=== PATIENT | female | born 1995 | race Caucasian/White ===

== ENCOUNTER 2020-01-07 12:49 | Outpatient (CLI) | payer MEDICAID, SELFPAY ==
[2020-01-07 14:14] LABS: Iron 115 ug/dL (37-170)
[2020-01-07 14:25] LABS: Percent Iron Saturation 28 % (20-50)
== END 2020-01-07 12:50 | disposition home or self-care (01) ==
LOC: ANHWCLAB 12:51
PROVIDERS: PCP Internal Medicine; Visit Provider Internal Medicine
DX: G25.81 Restless legs syndrome (principal)
CPT/HCPCS: 36415; 82728; 83540; 83550

== ENCOUNTER 2020-02-22 09:13 | Outpatient (CLI) | payer MEDICAID, SELFPAY ==
[2020-02-22 09:53] LABS: Basophils Percent Auto 0.4 % (0.2-1.2); Eosinophils Absolute Auto 0.1 K/mm3 (0-0.3); Eosinophils Percent Auto 1.4 % (0-4.4); Hematocrit 41.7 % (37.0-47.0); Hemoglobin 13.5 g/dL (12.0-15.0); Immature Granulocyte Absolute 0.02 K/mm3 (0.00-0.031); Immature Granulocyte Percent A 0.3 % (0-0.5); Lymphocytes Absolute Auto 1.86 K/mm3 (0.9-3.2); Lymphocytes Percent Auto 26.5 % (18.3-44.2); Mean Corpuscular HGB Conc 32.4 g/dl (32-36); Mean Corpuscular Hemoglobin 29.9 pg (26-34); Mean Corpuscular Volume 92.5 fl (80-100); Mean Platelet Volume 9.7 fl (7.4-10.4); Monocytes Absolute Auto 0.5 K/mm3 (0.1-0.6); Monocytes Percent Auto 6.4 % (2.6-8.5); Neutrophils Absolute Auto 4.6 K/mm3 (1.3-6.7); Platelet Count Result 302 k/mm3 (150-375); Red Blood Count 4.51 M/mm3 (4.2-5.4); Red Cell Distribution Width 12.2 % (11.5-14.5)
[2020-02-22 10:22] LABS: Alanine Aminotransferase 24 U/L (4-35); Albumin Level 4.6 g/dL (3.5-5.1); Alkaline Phosphatase 73 U/L (38-126); Aspartate Amino Transferase 24 U/L (14-36); Bilirubin,Total 0.4 mg/dL (0.2-1.3); Blood Urea Nitrogen 9 mg/dL (7-17); Calcium 9.3 mg/dL (8.4-10.2); Carbon Dioxide 26 mmol/L (22-30); Chloride 106 mmol/L (98-107); Estimated Glomerular Filt Rate > 60; Glucose 95 mg/dL (65-105); Potassium 4.3 mmol/L (3.4-5.0); Sodium 139 mmol/L (137-145)
[2020-02-22 11:36] LABS: Iron 69 ug/dL (37-170); Percent Iron Saturation 16 % (20-50)
== END 2020-02-22 09:14 | disposition home or self-care (01) ==
LOC: ANHLAB 09:15
PROVIDERS: PCP Internal Medicine; Visit Provider Internal Medicine
DX: E61.1 Iron deficiency (principal); G43.709 Chronic migraine without aura, not intractable, without status migrainosus; Z79.899 Other long term (current) drug therapy
CPT/HCPCS: 36415; 80053; 82306; 82728; 83540; 83550; 84443; 85025

== ENCOUNTER 2020-04-11 12:53 | Outpatient (CLI) | payer OTHER, SELFPAY ==
--- NOTE | 2020-04-17 13:32 | WPDPFTINT ---
PFT Interpretation PFT Interpretation: This Spirometry met all criteria for ATS standards and reproducibility FEV/FVC post bronchodilator 80% FEV1 was 113% of predicted FVC 108% of predicted Flow volume loops were normal Impression: This was a normal Spirometry. Clinical correlation is advised.
== END 2020-04-11 12:54 | disposition home or self-care (01) ==
PROVIDERS: PCP Internal Medicine; Visit Provider Internal Medicine
DX: R06.02 Shortness of breath (principal)
CPT/HCPCS: 94375

== ENCOUNTER 2020-05-27 07:41 | Emergency (ER) | payer OTHER, SELFPAY ==
--- NOTE | ~2020-05-27 | CT_ITS ---
EXAMINATION: CT brain wo con DATE: 05/27/2020 08:21 INDICATION: Headache. TECHNIQUE: Computed tomography (CT) of the head was performed without intravenous contrast. The mA wa s adjusted according to patient size. Iterative reconstruction technique was employed. The dose-lengt h product was 605.33 mGy-cm. COMPARISON: None FINDINGS: There is no intracranial hemorrhage, acute infarction, or abnormal intracranial mass lesion . The ventricles are normal in size. The orbits are normal. There is mucosal thickening in the parana janae sinuses. There is thickening and sclerosis of the robles of right maxillary sinus, consistent with chronic sinusitis. There are changes of left mastoidectomy. IMPRESSION: 1. Normal brain. 2. Chronic sinusitis. Reviewed, dictated and finalized at location A.
--- NOTE | 2020-05-27 07:44 | ED.GENADULT ---
HPI - General Adult General Chief complaint: Headache Stated complaint: Head Pain Time Seen by Provider: 05/27/20 07:44 Source: patient Mode of arrival: ambulatory Limitations: no limitations History of Present Illness HPI narrative: Patient is a 24-year-old female who presents for evaluation of headache pain. Patient reports a sharp, stabbing headache that is located over the right side of her head, associated with a pressure behind her right eye. No eye tearing, or vision changes. No eye redness. Patient with a history of migraine headaches, but states this is much different than typical migraines. Headache awakened her from sleep this morning. She denies neck pain, dizziness, nausea or vomiting. No aura like sensation with this, although she states with her typical migraines she does experience that. Pain is been ongoing over the past 3 days. Patient has tried her [id number] medications and prescribed Topamax without much improvement in her symptoms. No fever, chills or neck pain. No numbness or difficulty with walking. Related Data Home Medications Medication Instructions Recorded Confirmed etonogestrel 68 mg subdermal 1 implant SUBDERMAL ONCE 11/23/19 02/25/20 implant Allergies Allergy/AdvReac Type Severity Reaction Status Date / Time No Known Allergies Allergy Verified 05/27/20 07:53 Review of Systems Review of Systems: Narrative: CONSTITUTIONAL: Denies fever, chills, or sweats. EYES: Denies visual changes, redness, or discharge. ENT: Denies rhinorrhea, congestion, sore throat, or otalgia. CARDIOVASCULAR: Denies chest pain RESPIRATORY: Denies cough or dyspnea. GASTROINTESTINAL: Denies abdominal pain, nausea, vomiting, or diarrhea. SKIN: Denies rash or itching. MUSCULOSKELETAL: Denies back pain, joint pain, or myalgia. NEUROLOGIC:Reports headache, denies numbness or weakness PMFSH Past Medical History Medical History BMI 32.0-32.9,adult Cervical radiculopathy Chronic migraine Generalized anxiety disorder Hypovitaminosis D Post-nasal drip Shortness of breath Family History Family History Father Diabetes mellitus Patient's father is in good health Mother Patient's mother is in good health Family history of malignant melanoma Social History Social History Smoking status: Never smoker Alcohol intake: current Gender identity (if verbalized by the patient): Female Exam Narrative: Exam Narrative: GENERAL: Awake, alert, conversant HEAD: Normocephalic, atraumatic. EYES: 2+ PERRLA and EOMI. ENT: Nares clear, no rhinorrhea or epistaxis. Mucous membranes moist. NECK: Supple. CHEST: No respiratory distress, breathing even and non labored HEART: Regular rate, sinus rhythm ABDOMEN:Non distended, non tender EXTREMITIES: Normal range of motion. No edema. SKIN: Warm, dry, no rash. NEURO:No focal deficits. Alert and oriented x3. EOMs intact without nystagmus. No facial droop/asymmetry noted bilaterally. Grimace intact. Intact sensation in face. Hearing intact bilaterally. Shoulder shrug intact. Strength 5/5 bilateral upper extremities. Strength 5/5 bilateral lower extremities. Ambulatory with a narrow base, steady gait. Course Vital Signs Vital signs: Vital Signs Temperature 37.1 C 05/27/20 07:48 Pulse Rate 82 05/27/20 07:48 Respiratory Rate 18 05/27/20 07:48 Blood Pressure 155/69 H 05/27/20 07:48 Pulse Oximetry 100 05/27/20 07:48 Temperature 37.1 C 05/27/20 07:48 Pulse Rate 81 05/27/20 08:02 Respiratory Rate 16 05/27/20 08:02 Blood Pressure 130/76 05/27/20 08:02 Pulse Oximetry 100 05/27/20 08:02 Medical Decision Making MDM Narrative Medical decision making narrative: The patient was evaluated in the emergency department for headache. Patient's headache pain was not sudden or maxim
[2020-05-27 07:48] VITALS: BP 155/69; PULSE 82; RESP 18; TEMP 37.1; O2SAT 100
[2020-05-27 08:02] VITALS: BP 130/76; PULSE 81; RESP 16; O2SAT 100
[2020-05-27] MEDS: diphenhydrAMINE HCl INJ 50 MG/ML VIAL 25 MG IV PUSH (08:10)
[2020-05-27] MEDS: SODIUM CHLORIDE 0.9% IV 1,000 ML 999 ML IV CONT (08:11)
[2020-05-27] MEDS: MAGNESIUM SULF 2 GM/WATER 50ML 2 GM/50 ML BAG IVPB (08:16)
[2020-05-27 08:26] LABS: Basophils Percent Auto 0.7 % (0.2-1.2); Eosinophils Absolute Auto 0.1 K/mm3 (0-0.3); Eosinophils Percent Auto 1.8 % (0-4.4); Hematocrit 42.6 % (37.0-47.0); Hemoglobin 14.3 g/dL (12.0-15.0); Immature Granulocyte Absolute 0.03 K/mm3 (0.00-0.031); Immature Granulocyte Percent A 0.5 % (0-0.5); Lymphocytes Absolute Auto 1.93 K/mm3 (0.9-3.2); Lymphocytes Percent Auto 32.3 % (18.3-44.2); Mean Corpuscular HGB Conc 33.6 g/dl (32-36); Mean Corpuscular Hemoglobin 30.1 pg (26-34); Mean Corpuscular Volume 89.7 fl (80-100); Mean Platelet Volume 10.2 fl (7.4-10.4); Monocytes Absolute Auto 0.4 K/mm3 (0.1-0.6); Monocytes Percent Auto 6.5 % (2.6-8.5); Neutrophils Absolute Auto 3.5 K/mm3 (1.3-6.7); Neutrophils Percent Auto 58.2 % (45.5-73.1); Platelet Count Result 260 k/mm3 (150-375); Red Blood Count 4.75 M/mm3 (4.2-5.4); Red Cell Distribution Width 12.9 % (11.5-14.5)
[2020-05-27 08:43] LABS: Blood Urea Nitrogen 9 mg/dL (7-17); Calcium 9.2 mg/dL (8.4-10.2); Carbon Dioxide 21 mmol/L (22-30); Chloride 107 mmol/L (98-107); Estimated CRCL calculation 130 ml/min; Estimated Glomerular Filt Rate > 60; Glucose 115 mg/dL (65-105); Sodium 138 mmol/L (137-145)
[2020-05-27 09:14] VITALS: BP 113/70; PULSE 70; RESP 10; O2SAT 98
== END 2020-05-27 09:20 | disposition home or self-care (01) ==
PROVIDERS: Emergency Provider Emergency Medicine; PCP Internal Medicine
DX: G44.009 Cluster headache syndrome, unspecified, not intractable (principal); F41.9 Anxiety disorder, unspecified
CPT/HCPCS: 36415; 70450; 80048; 81025; 85025; 96365; 96368; 96375; 99284; J0131; J1100; J1200; J3475; J7030

== ENCOUNTER 2020-07-04 09:23 | Outpatient (CLI) | payer OTHER, SELFPAY ==
--- NOTE | ~2020-07-04 | XR_ITS ---
EXAMINATION: XR abdomen/kub 1V EXAM DATE: 07/04/2020 09:40 INDICATION: Right flank pain. History kidney stones. TECHNIQUE: Frontal projection(s) of the abdomen for interpretation. There is no prior study for sole schaefer. FINDINGS: There is expected amount of colonic stool and gas. No small bowel dilation, nonobstructiv e bowel gas pattern. There are no suspicious calcifications identified. There is no organomegaly suspected. The bones are unremarkable. There are cholecystectomy clips. IMPRESSION: Unremarkable abdomen x-ray exam. Reviewed, dictated and finalized at location A.
[2020-07-04 10:09] LABS: Add Urine Microscopic? YES; Appearance Urine Cloudy (Clear); Bacteria Urine Trace /hpf; Bilirubin Urine Negative (Negative); Blood Urine 1+ (Negative); Color Urine Yellow (Yellow); Glucose Urine UA Negative (Negative); Ketones Urine Negative (Negative); Leukocyte Esterase Ur Trace LEU/UL (Negative); Mucus Urine Moderate /lpf; Nitrate Urine Negative (Negative); Protein Urine Negative (Negative); RBC Urine 0-2 /hpf (0-2); Specific Grav Ur 1.024 (1.001-1.035); Squamous Epithelial Cell Urine Many /hpf (Few); Urobilinogen Urine Negative mg/dL (<2.0)
== END 2020-07-04 09:24 | disposition home or self-care (01) ==
LOC: ANHIMG 09:24
PROVIDERS: PCP Internal Medicine; Visit Provider Internal Medicine
DX: R10.9 Unspecified abdominal pain (principal); N20.0 Calculus of kidney
CPT/HCPCS: 74018; 81001

== ENCOUNTER 2020-07-07 08:05 | Outpatient (CLI) | payer OTHER, SELFPAY | END 2020-07-07 08:06 | disposition home or self-care (01) | LOC: ANHLAB 08:07 | PROVIDERS: Visit Provider Internal Medicine | DX: R82.90 Unspecified abnormal findings in urine (principal) | CPT/HCPCS: 87086 ==

== ENCOUNTER 2020-07-11 10:34 | Outpatient (CLI) | payer OTHER, SELFPAY ==
[2020-07-11 11:19] LABS: Add Urine Microscopic? NO; Appearance Urine Clear (Clear); Bilirubin Urine Negative (Negative); Blood Urine Negative (Negative); Color Urine Yellow (Yellow); Glucose Urine UA Negative (Negative); Ketones Urine Negative (Negative); Leukocyte Esterase Ur Negative LEU/UL (NEGATIVE); Nitrate Urine Negative (Negative); Protein Urine Negative (Negative); Specific Grav Ur 1.023 (1.001-1.035); Urobilinogen Urine Negative mg/dL (<2.0)
== END 2020-07-11 10:35 | disposition home or self-care (01) ==
PROVIDERS: PCP Internal Medicine; Visit Provider Internal Medicine
DX: R31.9 Hematuria, unspecified (principal)
CPT/HCPCS: 81003

== ENCOUNTER 2020-10-01 13:15 | Emergency (ER) | payer OTHER, SELFPAY ==
--- NOTE | ~2020-10-01 | CT_ITS ---
EXAMINATION: CT brain wo con DATE: 10/01/2020 14:00 INDICATION: Peripheral vision change. Hand numbness. TECHNIQUE: Computed tomography (CT) of the head was performed without intravenous contrast. The mA wa s adjusted according to patient size. Iterative reconstruction technique was employed. The dose-lengt h product was 983.67 mGy-cm. COMPARISON: Head CT 05/27/2020 FINDINGS: There is no intracranial hemorrhage, acute infarction, or abnormal intracranial mass lesion . The ventricles are normal in size. There are changes of left-sided mastoidectomy. There is mild muc osal thickening in the ethmoid sinuses. The orbits are normal. IMPRESSION: 1. Normal brain. Reviewed, dictated and finalized at location A. [place] IMPRESSION: 1. Normal brain.
[2020-10-01 13:40] VITALS: BP 134/81; PULSE 80; RESP 18; TEMP 36.9; O2SAT 100
[2020-10-01] MEDS: KETOROLAC 30 MG/ML VIAL (*BKC) IV PUSH (13:45)
[2020-10-01] MEDS: METOCLOPRAMIDE HCL INJ 10 MG/2 ML VIAL IV PUSH (13:45)
[2020-10-01] MEDS: diphenhydrAMINE HCl INJ 50 MG/ML VIAL 25 MG IV PUSH (13:45)
[2020-10-01] MEDS: SODIUM CHLORIDE 0.9% IV 1,000 ML 999 ML IV CONT (13:45)
[2020-10-01 13:46] LABS: Basophils Percent Auto 0.5 % (0.2-1.2); Eosinophils Absolute Auto 0.1 K/mm3 (0-0.3); Eosinophils Percent Auto 0.9 % (0-4.4); Hematocrit 42.9 % (37.0-47.0); Hemoglobin 14.6 g/dL (12.0-15.0); Immature Granulocyte Absolute 0.01 K/mm3 (0.00-0.031); Immature Granulocyte Percent A 0.2 % (0-0.5); Lymphocytes Absolute Auto 1.74 K/mm3 (0.9-3.2); Lymphocytes Percent Auto 27.1 % (18.3-44.2); Mean Corpuscular Hemoglobin 30.8 pg (26-34); Mean Corpuscular Volume 90.5 fl (80-100); Monocytes Absolute Auto 0.4 K/mm3 (0.1-0.6); Monocytes Percent Auto 5.9 % (2.6-8.5); Neutrophils Absolute Auto 4.2 K/mm3 (1.3-6.7); Neutrophils Percent Auto 65.4 % (45.5-73.1); Platelet Count Result 284 k/mm3 (150-375); Red Blood Count 4.74 M/mm3 (4.2-5.4); Red Cell Distribution Width 11.9 % (11.5-14.5); White Blood Count 6.4 K/mm3 (4.5-10.0)
[2020-10-01 14:00] LABS: Anion Gap 11 mmol/L (8-16); Blood Urea Nitrogen 7 mg/dL (7-17); Calcium 9.5 mg/dL (8.4-10.2); Carbon Dioxide 24 mmol/L (22-30); Chloride 105 mmol/L (98-107); Estimated Glomerular Filt Rate > 60; Glucose 105 mg/dL (65-105); Potassium 3.6 mmol/L (3.4-5.0); Sodium 140 mmol/L (137-145)
--- NOTE | 2020-10-01 14:17 | ED.GENADULT ---
HPI - General Adult General Chief complaint: Eye Problems Stated complaint: visual changes Time Seen by Provider: 10/01/20 13:25 History of Present Illness HPI narrative: Patient is a 25-year-old female who presents the ER with visual changes and numbness in her fingers. Patient reports she has history of migraines. Reports yesterday evening she began to have her visual aura where the peripheral vision of her eyes becomes blurry and has some movement. She went to bed after a headache did not occur. She woke up this morning and her visual symptoms persisted. She then began to develop tingling in her fingers on the right side which then moved over to the left side. No slurred speech or other neurologic deficit. No aggravating or alleviating factors for her symptoms that she is found. She used to take Topamax and sumatriptan but has been off medications for quite a while for her migraine. Related Data Home Medications Medication Instructions Recorded Confirmed etonogestrel 68 mg subdermal 1 implant SUBDERMAL ONCE 11/23/19 02/25/20 implant phentermine 37.5 mg PO DAILY 10/01/20 Allergies Allergy/AdvReac Type Severity Reaction Status Date / Time No Known Allergies Allergy Verified 10/01/20 13:48 Review of Systems Review of Systems: All systems reviewed & are unremarkable except as noted in HPI and below Constitutional: Constitutional: Denies chills, Denies fever(s) and Denies weakness Eyes: Eyes: Reports change in vision and Denies photophobia Gastrointestinal: Gastrointestinal: Denies nausea and Denies vomiting Neurologic: Reports dizziness, Denies headache(s), Denies focal weakness and Reports numbness PMFSH Past Medical History Medical History (Updated 10/01/20 @ 14:20 by Yung Castro MD) BMI 32.0-32.9,adult Cervical radiculopathy Chronic migraine Generalized anxiety disorder Hypovitaminosis D Post-nasal drip Shortness of breath Surgical History Surgical History (Updated 10/01/20 @ 14:19 by Yung Castro MD) History of cholecystectomy Hx of tonsillectomy Family History Family History Father Diabetes mellitus Patient's father is in good health Mother Patient's mother is in good health Family history of malignant melanoma Social History Social History Smoking status: Never smoker Alcohol intake: current Gender identity (if verbalized by the patient): Female Exam Narrative: Exam Narrative: GENERAL: Well-appearing, well-nourished, and in no acute distress. HEAD: Normocephalic, atraumatic. CHEST: Clear to auscultation. No respiratory distress. HEART: Regular rate and rhythm. Normal peripheral pulses. ABDOMEN: Soft, nontender, nondistended. EXTREMITIES: Normal range of motion. No edema. SKIN: Warm, dry, no rash. NEURO: Decreased vision in the inferior aspect of the visual field. Alert and oriented x3. PSYCH: Normal mood and affect. Course Course Emergency Course: Numbness and visual deficit essentially resolved after migraine cocktail. Informed results. Discharge home. Vital Signs Vital signs: Vital Signs Temperature 98.4 F 10/01/20 13:40 Pulse Rate 80 10/01/20 13:40 Respiratory Rate 18 10/01/20 13:40 Blood Pressure 134/81 10/01/20 13:40 Pulse Oximetry 100 10/01/20 13:40 Temperature 98.4 F 10/01/20 13:40 Pulse Rate 80 10/01/20 13:40 Respiratory Rate 18 10/01/20 13:40 Blood Pressure 134/81 10/01/20 13:40 Pulse Oximetry 100 10/01/20 13:40 Medical Decision Making Vital Signs Vital Signs: Vital Signs Temperature 98.4 F 10/01/20 13:40 Pulse Rate 80 10/01/20 13:40 Respiratory Rate 18 10/01/20 13:40 Blood Pressure 134/81 10/01/20 13:40 Pulse Oximetry 100 10/01/20 13:40 Temperature 98.4 F 10/01/20 13:40 Pulse Rate 80 10/01/20 13:40 Respiratory Rate 18 10/01/20 13:40 Blood Pressu
== END 2020-10-01 14:25 | disposition home or self-care (01) ==
PROVIDERS: Emergency Provider Emergency Medicine; PCP Nurse Practitioner Family
DX: G43.909 Migraine, unspecified, not intractable, without status migrainosus (principal)
CPT/HCPCS: 36415; 70450; 80048; 85025; 96361; 96374; 96375; 99284; J1200; J1885; J2765; J7030

== ENCOUNTER 2020-11-30 13:32 | Emergency (ER) | payer OTHER, SELFPAY ==
--- NOTE | ~2020-11-30 | XR_ITS ---
EXAMINATION: XR abdomen/kub 1V EXAM DATE: 11/30/2020 14:26 INDICATION: Passed stone; Lt sided kidney stone . TECHNIQUE: Frontal projection(s) of the abdomen for interpretation. Comparison is made to prior exami nation from 07/04/2020. FINDINGS: There is expected amount of colonic stool and gas. No small bowel dilation, nonobstructiv e bowel gas pattern. There are no suspicious calcifications identified. There is no organomegaly suspected. Mild lumbar levocurvature, could be positional or scoliosis. IMPRESSION: No suspicious calcifications identified. Reviewed, dictated and finalized at location A. [employer]
[2020-11-30 13:35] VITALS: BP 119/42; PULSE 101; RESP 20; TEMP 36.1; O2SAT 100
[2020-11-30 14:03] LABS: Basophils Percent Auto 0.5 % (0.2-1.2); Eosinophils Absolute Auto 0.1 K/mm3 (0-0.3); Eosinophils Percent Auto 1.1 % (0-4.4); Hematocrit 43.2 % (37.0-47.0); Hemoglobin 14.8 g/dL (12.0-15.0); Immature Granulocyte Absolute 0.02 K/mm3 (0.00-0.031); Immature Granulocyte Percent A 0.3 % (0-0.5); Lymphocytes Absolute Auto 2.47 K/mm3 (0.9-3.2); Lymphocytes Percent Auto 31.1 % (18.3-44.2); Mean Corpuscular HGB Conc 34.3 g/dl (32-36); Mean Corpuscular Volume 90.4 fl (80-100); Mean Platelet Volume 9.8 fl (7.4-10.4); Monocytes Absolute Auto 0.5 K/mm3 (0.1-0.6); Monocytes Percent Auto 6.4 % (2.6-8.5); Neutrophils Absolute Auto 4.8 K/mm3 (1.3-6.7); Neutrophils Percent Auto 60.6 % (45.5-73.1); Platelet Count Result 349 k/mm3 (150-375); Red Blood Count 4.78 M/mm3 (4.2-5.4); Red Cell Distribution Width 12.1 % (11.5-14.5); White Blood Count 7.9 K/mm3 (4.5-10.0)
[2020-11-30 14:08] LABS: Add Urine Microscopic? YES; Appearance Urine Clear (Clear); Bacteria Urine Trace /hpf; Bilirubin Urine Negative (Negative); Blood Urine 2+ (Negative); Color Urine Amber (Yellow); Glucose Urine UA Negative (Negative); Ketones Urine Trace mg/dL (Negative); Leukocyte Esterase Ur Negative LEU/UL (Negative); Mucus Urine Heavy /lpf; Nitrate Urine Negative (Negative); Protein Urine 1+ mg/dL (Negative); RBC Urine >75 /hpf (0-2); Specific Grav Ur 1.023 (1.001-1.035); Squamous Epithelial Cell Urine Few /hpf (Few); WBC Urine 0-3 /hpf
[2020-11-30 14:13] LABS: Alanine Aminotransferase 22 U/L (4-35); Albumin Level 4.7 g/dL (3.5-5.1); Alkaline Phosphatase 76 U/L (38-126); Anion Gap 10 mmol/L (8-16); Aspartate Amino Transferase 22 U/L (14-36); Bilirubin,Total 0.5 mg/dL (0.2-1.3); Blood Urea Nitrogen 10 mg/dL (7-17); Calcium 9.3 mg/dL (8.4-10.2); Carbon Dioxide 23 mmol/L (22-30); Chloride 106 mmol/L (98-107); Estimated CRCL calculation 105 ml/min; Estimated Glomerular Filt Rate > 60; Glucose 116 mg/dL (65-105); Lipase 51 U/L (23-300); Potassium 3.8 mmol/L (3.4-5.0); Sodium 139 mmol/L (137-145)
[2020-11-30] MEDS: ONDANSETRON INJ 4 MG/2 ML VIAL IV PUSH (14:25)
[2020-11-30] MEDS: SODIUM CHLORIDE 0.9% IV 1,000 ML 999 ML IV CONT (14:25)
--- NOTE | 2020-11-30 14:47 | ED.ABDPAIN ---
HPI - Abdominal Pain General Chief Complaint: Abdominal Pain Stated Complaint: Left lower back pain Time Seen by Provider: 11/30/20 13:38 Source: patient and family Mode of arrival: ambulatory Limitations: no limitations History of Present Illness HPI narrative: Patient is a 25-year-old female who developed acute onset of left flank pain that began acutely this morning denies similar occurrence in the past presents per private vehicle has not taken anything for pain noted nausea and chills associated with her symptoms patient uncomfortable on arrival Related Data Home Medications Medication Instructions Recorded Confirmed etonogestrel 68 mg subdermal 1 implant SUBDERMAL ONCE 11/23/19 02/25/20 implant phentermine 37.5 mg PO DAILY 10/01/20 Allergies Allergy/AdvReac Type Severity Reaction Status Date / Time metoclopramide [From Reglan] AdvReac Jittery Verified 11/30/20 13:47 Review of Systems Review of Systems: All systems reviewed & are unremarkable except as noted in HPI and below PMFSH Past Medical History Medical History BMI 32.0-32.9,adult Cervical radiculopathy Chronic migraine Generalized anxiety disorder Hypovitaminosis D Post-nasal drip Shortness of breath Surgical History Surgical History History of cholecystectomy Hx of tonsillectomy Family History Family History Father Diabetes mellitus Patient's father is in good health Mother Patient's mother is in good health Family history of malignant melanoma Social History Social History Smoking status: Never smoker Alcohol intake: current Gender identity (if verbalized by the patient): Female Exam Narrative: Exam Narrative: GENERAL: Well-appearing, well-nourished, and in no acute distress. HEAD: Normocephalic, atraumatic. EYES: PERRLA and EOMI. ENT: Nares clear, no rhinorrhea or epistaxis. Mucous membranes moist. CHEST: Clear to auscultation. No respiratory distress. No wheezes rales or rhonchi HEART: Regular rate and rhythm. No murmur heard. Normal peripheral pulses. ABDOMEN: Soft, nontender, nondistended EXTREMITIES: Normal range of motion. No edema. SKIN: Warm, dry, no rash. NEURO: No focal deficits. Alert and oriented x3. PSYCH: Normal mood and affect. Course Course Emergency Course: Patient passed stone while in the restroom no longer in pain no other symptoms no other high risk changes will be discharged home given urology follow-up also provided with reasons to return Vital Signs Vital signs: Vital Signs Temperature 97.0 F L 11/30/20 13:35 Pulse Rate 101 H 11/30/20 13:35 Respiratory Rate 20 11/30/20 13:35 Blood Pressure 119/42 L 11/30/20 13:35 Pulse Oximetry 100 11/30/20 13:35 Temperature 97.0 F L 11/30/20 13:35 Pulse Rate 101 H 11/30/20 13:35 Respiratory Rate 20 11/30/20 13:35 Blood Pressure 119/42 L 11/30/20 13:35 Pulse Oximetry 100 11/30/20 13:35 MDM - Abdominal Pain MDM Narrative Medical decision making narrative: Patient with urolithiasis in the room in no distress felt appropriate for outpatient reevaluation Lab Data Result diagrams: 11/30/20 13:48 11/30/20 13:48 Labs: Lab Results 11/30/20 11/30/20 11/30/20 Range/Units 13:48 13:48 13:48 WBC 7.9 (4.5-10.0) K/mm3 RBC 4.78 (4.2-5.4) M/mm3 Hgb 14.8 (12.0-15.0) g/dL Hct 43.2 (37.0-47.0) % MCV 90.4 (80-100) fl MCH 31.0 (26-34) pg MCHC 34.3 (32-36) g/dl RDW 12.1 (11.5-14.5) % Plt Count 349 (150-375) k/mm3 MPV 9.8 (7.4-10.4) fl Immature Gran % (Auto) 0.3 (0-0.5) % Neut % (Auto) 60.6 (45.5-73.1) % Lymph % (Auto) 31.1 (18.3-44.2) % Glynn % (Auto) 6.4 (2.6-8.5) % Eos % (Auto) 1.1 (0-4.4) % Baso % (
== END 2020-11-30 15:17 | disposition home or self-care (01) ==
PROVIDERS: Emergency Provider Emergency Medicine; PCP Nurse Practitioner Family
DX: N20.9 Urinary calculus, unspecified (principal)
CPT/HCPCS: 36415; 74018; 80053; 81001; 81025; 83690; 85025; 96361; 96374; 96375; 99284; J0131; J2405; J7030

== ENCOUNTER 2021-04-23 10:00 | Outpatient (CLI) | payer OTHER, SELFPAY ==
[2021-04-23 12:40] LABS: Basophils Percent Auto 0.4 % (0.2-1.2); Eosinophils Absolute Auto 0.1 K/mm3 (0-0.3); Eosinophils Percent Auto 1.6 % (0-4.4); Hematocrit 44.7 % (37.0-47.0); Hemoglobin 14.7 g/dL (12.0-15.0); Immature Granulocyte Absolute 0.02 K/mm3 (0.00-0.031); Immature Granulocyte Percent A 0.3 % (0-0.5); Lymphocytes Absolute Auto 1.98 K/mm3 (0.9-3.2); Lymphocytes Percent Auto 28.9 % (18.3-44.2); Mean Corpuscular HGB Conc 32.9 g/dl (32-36); Mean Corpuscular Hemoglobin 30.8 pg (26-34); Mean Corpuscular Volume 93.5 fl (80-100); Mean Platelet Volume 10.4 fl (7.4-10.4); Monocytes Absolute Auto 0.5 K/mm3 (0.1-0.6); Monocytes Percent Auto 7.2 % (2.6-8.5); Neutrophils Absolute Auto 4.2 K/mm3 (1.3-6.7); Neutrophils Percent Auto 61.6 % (45.5-73.1); Platelet Count Result 282 k/mm3 (150-375); Red Blood Count 4.78 M/mm3 (4.2-5.4); White Blood Count 6.9 K/mm3 (4.5-10.0)
[2021-04-23 12:48] LABS: Alanine Aminotransferase 21 U/L (4-35); Albumin Level 4.8 g/dL (3.5-5.1); Alkaline Phosphatase 68 U/L (38-126); Anion Gap 10 mmol/L (8-16); Aspartate Amino Transferase 21 U/L (14-36); Bilirubin,Total 0.6 mg/dL (0.2-1.3); Blood Urea Nitrogen 15 mg/dL (7-17); Calcium 9.8 mg/dL (8.4-10.2); Carbon Dioxide 23 mmol/L (22-30); Chloride 107 mmol/L (98-107); Cholesterol 177 mg/dL (0-200); Estimated Glomerular Filt Rate > 60; Glucose 92 mg/dL (65-105); HDL Direct 59 mg/dL; Potassium 4.8 mmol/L (3.4-5.0); Sodium 140 mmol/L (137-145); Triglycerides 72 mg/dL (<150)
[2021-04-23 12:59] LABS: LDL Cholesterol Direct 88 mg/dL
[2021-04-23 13:15] LABS: Vitamin D 25 Hydroxy 49.8 ng/mL
[2021-04-23 13:54] LABS: Folic Acid 7.6 ng/mL (2.76->20)
== END 2021-04-23 10:01 | disposition home or self-care (01) ==
LOC: ANHWCLAB 10:06
PROVIDERS: PCP Nurse Practitioner Family; Visit Provider Nurse Practitioner Family
DX: Z13.1 Encounter for screening for diabetes mellitus (principal); Z13.0 Encounter for screening for diseases of the blood and blood-forming organs and certain disorders involving the immune mechanism; Z13.29 Encounter for screening for other suspected endocrine disorder; Z13.220 Encounter for screening for lipoid disorders
CPT/HCPCS: 36415; 80053; 80061; 82306; 82607; 82746; 84443; 85025

== ENCOUNTER 2021-05-22 16:23 | Outpatient (CLI) | payer OTHER, SELFPAY ==
--- NOTE | ~2021-05-22 | CT_ITS ---
EXAMINATION: CT abdomen pelvis wo con EXAM DATE: 05/22/2021 17:07 INDICATION: Kidney stones Stone protocol. TECHNIQUE: Spiral CT of the abdomen and pelvis was performed without contrast. Axial, coronal and sag ittal images were reviewed. The dose-length product (DLP) for this examination was 213.63 mGy-cm. T he exposure was tailored according to patient size (auto mA exposure control), and iterative reconstr uction (ASIR) was used as additional dose reduction technique. Comparison is made to prior examinatio n from 11/30/2018. FINDINGS: There is a punctate stone identified in each kidney. No ureteral stones or hydronephrosis. The uterus is anteverted and morphologically normal. There is a right ovarian cyst measuring 4 cm, c ould be a hemorrhagic cyst before rupture. The bladder is unremarkable. The liver, spleen, adrenal glands and pancreas are unremarkable. There are cholecystectomy clips. There is no retroperitoneal or pelvic lymphadenopathy. The appendix is normal. The stomach and small bowel are unremarkable. There is expected amount of c olonic stool. No free intraperitoneal gas. The heart is normal in size. There are no pericardial or pleural effusions. The lung bases are unremarkable. The bones are unremarkable. IMPRESSION: 1. Right ovarian 4 cm cystic lesion likely dominant physiologic, or hemorrhagic cyst. 2. Punctate bilateral nephrolithiasis. No hydronephrosis or acute findings. Reviewed, dictated and finalized at location G. IMPRESSION: 1. Right ovarian 4 cm cystic lesion likely dominant physiologic, or hemorrhagi c cyst. 2. Punctate bilateral nephrolithiasis. No hydronephrosis or acute findings.
[2021-05-22 17:14] LABS: Anion Gap 10 mmol/L (8-16); Blood Urea Nitrogen 10 mg/dL (7-17); Calcium 9.3 mg/dL (8.4-10.2); Carbon Dioxide 22 mmol/L (22-30); Chloride 107 mmol/L (98-107); Estimated Glomerular Filt Rate > 60; Glucose 95 mg/dL (65-110); Potassium 4.2 mmol/L (3.4-5.0); Sodium 139 mmol/L (137-145); Uric Acid 4.1 mg/dL (2.5-7.5)
== END 2021-05-22 16:24 | disposition home or self-care (01) ==
LOC: ANHIMG 16:25
PROVIDERS: PCP Nurse Practitioner Family; Visit Provider Urology
DX: N20.0 Calculus of kidney (principal); N83.201 Unspecified ovarian cyst, right side
CPT/HCPCS: 36415; 74176; 80048; 83970; 84550

== ENCOUNTER 2021-05-27 12:45 | Outpatient (CLI) | payer OTHER, SELFPAY ==
--- NOTE | ~2021-05-27 | US_ITS ---
EXAMINATION: US thyroid DATE: 05/27/2021 13:14 INDICATION: Neck mass TECHNIQUE: Multiple ultrasound images of the thyroid were obtained. COMPARISON: None. FINDINGS: The right thyroid lobe measures cm. The left thyroid lobe measures cm. No discrete nodules identifi ed. There is normal echotexture, echogenicity and vascular flow throughout the thyroid gland. There a re normal-sized left and right jugular chain lymph nodes measuring up to 8 mm in maximal short axis d iameter on the left and 6 mm on the right with typical central fatty margarita. IMPRESSION: 1. Normal thyroid ultrasound. Reviewed, dictated and finalized at location A.
== END 2021-05-27 12:46 | disposition home or self-care (01) ==
LOC: ANHIMG 12:47
PROVIDERS: PCP Nurse Practitioner Family; Visit Provider Nurse Practitioner Family
DX: R22.1 Localized swelling, mass and lump, neck (principal)
CPT/HCPCS: 76536

== ENCOUNTER 2021-05-28 11:19 | Outpatient (CLI) | payer OTHER, SELFPAY | END 2021-05-28 11:20 | disposition home or self-care (01) | PROVIDERS: PCP Nurse Practitioner Family; Visit Provider Urology | DX: N20.0 Calculus of kidney (principal) | CPT/HCPCS: 36415; 82340; 82507; 82570; 83735; 83945; 83986; 84105; 84133; 84300; 84392; 84560 ==

== ENCOUNTER 2021-06-17 15:09 | Outpatient (CLI) | payer OTHER, SELFPAY ==
--- NOTE | ~2021-06-17 | US_ITS ---
EXAMINATION: US pelvic complete w TV DATE: 06/17/2021 15:57 INDICATION: Ovarian cyst TECHNIQUE: Multiple transabdominal and endovaginal sonographic images of the pelvis were obtained. COMPARISON: None. FINDINGS: The uterus measures 8.5 x 4.1 x 3.6 cm. The endometrial complex measures 3 mm in thickness. Again se en is a tiny punctate echogenic and shadowing calcification along the endometrial stripe. The right o vary measures 2.8 x 2.1 x 2.1 cm. The left ovary measures 2.6 x 2.4 x 1.4 cm. There are a few small a nechoic follicles at both ovaries, the largest on the right measuring 1.9 cm in maximal diameter. The re is normal vascular flow with both arterial and venous waveforms in both ovaries. There is no free fluid in the pelvis. IMPRESSION: 1. Normal pelvic ultrasound. Reviewed, dictated and finalized at location A.
== END 2021-06-17 15:10 | disposition home or self-care (01) ==
PROVIDERS: PCP Nurse Practitioner Family; Visit Provider Student in an Organized Health Care Education/Training Program
DX: N83.209 Unspecified ovarian cyst, unspecified side (principal)
CPT/HCPCS: 76830; 76856

== ENCOUNTER 2021-06-19 09:41 | Outpatient (CLI) | payer OTHER, SELFPAY ==
[2021-06-19 15:06] LABS: Albumin Level 4.9 g/dL (3.5-5.1); Anion Gap 10 mmol/L (8-16); Blood Urea Nitrogen 11 mg/dL (7-17); Calcium 9.7 mg/dL (8.4-10.2); Carbon Dioxide 24 mmol/L (22-30); Chloride 104 mmol/L (98-107); Estimated Glomerular Filt Rate > 60; Glucose 76 mg/dL (65-110); Phosphorus 2.8 mg/dL (2.5-4.5); Potassium 4.5 mmol/L (3.4-5.0); Sodium 138 mmol/L (137-145)
[2021-06-19 16:44] LABS: Vitamin D 25 Hydroxy 40.2 ng/mL
== END 2021-06-19 09:42 | disposition home or self-care (01) ==
PROVIDERS: PCP Nurse Practitioner Family; Visit Provider Internal Medicine Endocrinology, Diabetes & Metabolism
DX: R79.89 Other specified abnormal findings of blood chemistry (principal); N20.0 Calculus of kidney
CPT/HCPCS: 36415; 80069; 82306; 83970

== ENCOUNTER 2021-06-23 08:57 | Outpatient (CLI) | payer OTHER, SELFPAY ==
--- NOTE | ~2021-06-23 | NM_ITS ---
EXAMINATION: NM parathyroid w imaging DATE: 06/23/2021 13:58 INDICATION: Primary hyperparathyroidism. TECHNIQUE: 20.2 mCi Tc99m sestamibi was administered intravenously. Anterior images of the neck were obtained immediately and at 2 hours. SPECT images of the neck were obtained. COMPARISON: None. FINDINGS: There is no focus of persistent activity in the area of the thyroid or mediastinum to sugge st parathyroid adenoma. IMPRESSION: 1. No evidence of a parathyroid adenoma. Reviewed, dictated and finalized at location B.
== END 2021-06-23 08:58 | disposition home or self-care (01) ==
PROVIDERS: PCP Nurse Practitioner Family; Visit Provider Internal Medicine Endocrinology, Diabetes & Metabolism
DX: E21.0 Primary hyperparathyroidism (principal); N20.0 Calculus of kidney
CPT/HCPCS: 78070; A9500

== ENCOUNTER 2021-07-10 12:22 | Outpatient (CLI) | payer OTHER, SELFPAY ==
[2021-07-10 18:52] LABS: Creatinine Urine 79.9 mg/dL
[2021-07-10 19:21] LABS: Creatinine 24 Hour Urine 1.5 gm/24 (0.8-1.8); Total Volume 24 Hour Urine 1900 ml
[2021-07-17 05:06] LABS: Total Volume 2000 mL; Urine Calcium 18.9 mg/dL
== END 2021-07-10 12:23 | disposition home or self-care (01) ==
PROVIDERS: PCP Nurse Practitioner Family; Visit Provider Internal Medicine Endocrinology, Diabetes & Metabolism
DX: E21.0 Primary hyperparathyroidism (principal); N20.0 Calculus of kidney
CPT/HCPCS: 81050; 82340; 82570

== ENCOUNTER → 2021-11-28 07:48 | Outpatient (CLI) | payer OTHER, SELFPAY ==
[2021-11-28 20:22] LABS: SARS-CoV-2 RNA PCR Negative
== END ==
PROVIDERS: PCP Nurse Practitioner Family; Visit Provider Nurse Practitioner Family
DX: Z20.822 Contact with and (suspected) exposure to COVID-19 (principal)
CPT/HCPCS: C9803; U0003; U0005

== ENCOUNTER 2022-04-13 10:38 | Emergency (ER) | payer OTHER, SELFPAY ==
[2022-04-13 10:50] VITALS: BP 126/87; PULSE 96; RESP 18; TEMP 36.6; O2SAT 99
--- NOTE | 2022-04-13 11:17 | ED.EAR ---
HPI - Ear Problem General Chief complaint: Ear Stated complaint: rt earache Time Seen by Provider: 04/13/22 11:18 Source: patient, RN notes reviewed and old records reviewed Mode of arrival: ambulatory Limitations: no limitations History of Present Illness HPI Narrative: 26-year-old female who presents to [facility] with complaints of right earache for the past 2 days with no known fevers, sinus congestion or drainage. Patient reports long history of problems with her bilateral ears with history of 10 sets of tubes to her ears over the years. Patient reports that her hearing is muffled in her right ear and she has noted some yellow green drainage from her right ear and some crusting. MD Complaint: ear pain Location: right ear Duration: constant Discharge from ear: Reports yes - purulent Treatment prior to arrival: oral analgesic and other (Sudafed) Related Data Home Medications Medication Instructions Recorded Confirmed etonogestrel 68 mg subdermal 1 implant subdermal ONCE 04/13/22 04/13/22 implant (Nexplanon) hydroxyzine HCl 25 mg tablet 25 tablet TID 04/13/22 04/13/22 zolpidem 10 mg tablet (Ambien) 10 mg PO HS 04/13/22 04/13/22 Allergies Allergy/AdvReac Type Severity Reaction Status Date / Time metoclopramide [From Reglan] AdvReac Jittery Verified 04/13/22 11:06 Review of Systems Review of Systems: CONSTITUTIONAL: Denies fever, chills, or sweats. EYES: Denies visual changes, redness, or discharge. ENT: Some clear rhinorrhea, congestion,no sore throat, positive for right otalgia. CARDIOVASCULAR: Denies chest pain, palpitations, or edema. RESPIRATORY: Denies cough or dyspnea. GASTROINTESTINAL: Denies abdominal pain, nausea, vomiting, or diarrhea. GENITOURINARY: Denies dysuria or hematuria. SKIN: Denies rash or itching. MUSCULOSKELETAL: Denies back pain, joint pain, or myalgia. NEUROLOGIC: Denies headache, numbness, or weakness. PSYCHIATRIC: Positive for history of anxiety or depression. ON LICENSE OF [facility] Past Medical History Medical History (Updated 04/13/22 @ 11:36 by Mini Garnica NP) Cervical radiculopathy Chronic migraine Depression Elective x1 Generalized anxiety disorder High serum parathyroid hormone (PTH) Hypovitaminosis D Kidney stones Vaginal delivery x2 Surgical History Surgical History (Updated 04/13/22 @ 11:32 by Mini Garnica NP) H/O parathyroidectomy January 2022 History of cholecystectomy 2011 History of placement of ear tubes 10 sets History of tympanoplasty 2013 Hx of tonsillectomy [place] teeth extracted 2013 Family History Family History Father Diabetes mellitus Hypertension Depression with anxiety Mother Family history of malignant melanoma Grandparent Asthma Renal cancer Diabetes mellitus Depression with anxiety Social History Social History Smoking status: Never smoker Alcohol intake: current Alcohol use details: rare use Substance use: never Gender identity (if verbalized by the patient): Female Comments At time of signature, agree with nursing past medical, surgical, social and family history. There is no relevant family history pertinent to the presenting complaint Exam Narrative: GENERAL: Well-appearing, well-nourished, and in no acute distress. HEAD: Normocephalic, atraumatic. EYES: PERRLA and EOMI. ENT: Nares with mild redness, clear rhinorrhea or epistaxis. Mucous membranes moist.TM's bilateral ears have noted white scar tissue, right TM red with some yellow green drainage noted canal has no drainage. NECK: Supple. no lymphadenopathy CHEST: Clear to auscultation. No respiratory distress.SAO2 99% on room air HEART: Regular rate and rhythm. No murmur heard. Normal peripheral pulses. ABDOMEN: Soft, nontender, nondistended, normal active bowel sounds. EXTREMITIES: Normal range of motion. No edema. SKIN: Warm, dry
== END 2022-04-13 11:44 | disposition home or self-care (01) ==
PROVIDERS: Emergency Provider Registered Nurse; PCP Nurse Practitioner Family
DX: H66.91 Otitis media, unspecified, right ear (principal); M54.12 Radiculopathy, cervical region; F41.1 Generalized anxiety disorder
CPT/HCPCS: 99213; G0463

== ENCOUNTER 2022-05-19 10:43 | Outpatient (CLI) | payer OTHER, SELFPAY ==
--- NOTE | ~2022-05-19 | XR_ITS ---
XR abdomen/kub 1V 05/19/2022 11:01 INDICATION: Right-sided abdomen pain. History of stones. TECHNIQUE: KUB COMPARISON: None FINDINGS: Bowel gas pattern is normal. There is no evidence of free air, mass, organomegaly, ascites or obstruction. There are small left renal stones. There are pelvic phleboliths. The bones appear in tact. IMPRESSION: 1: Left nephrolithiasis.. Reviewed, dictated and finalized at location A. IMPRESSION: 1: Left nephrolithiasis..
[2022-05-19 12:00] LABS: Basophils Percent Auto 0.4 % (0.2-1.2); Eosinophils Absolute Auto 0.1 K/mm3 (0-0.3); Eosinophils Percent Auto 0.7 % (0-4.4); Hematocrit 42.3 % (37.0-47.0); Hemoglobin 14.1 g/dL (12.0-15.0); Immature Granulocyte Absolute 0.06 K/mm3 (0.00-0.031); Immature Granulocyte Percent A 0.7 % (0-0.5); Lymphocytes Absolute Auto 1.92 K/mm3 (0.9-3.2); Lymphocytes Percent Auto 22.6 % (18.3-44.2); Mean Corpuscular HGB Conc 33.3 g/dl (32-36); Mean Corpuscular Hemoglobin 30.7 pg (26-34); Mean Platelet Volume 9.7 fl (7.4-10.4); Monocytes Absolute Auto 0.5 K/mm3 (0.1-0.6); Monocytes Percent Auto 6.1 % (2.6-8.5); Neutrophils Absolute Auto 5.9 K/mm3 (1.3-6.7); Neutrophils Percent Auto 69.5 % (45.5-73.1); Platelet Count Result 308 k/mm3 (150-375); Red Cell Distribution Width 12.3 % (11.5-14.5); White Blood Count 8.5 K/mm3 (4.5-10.0)
[2022-05-19 12:22] LABS: Parathyroid Intact 59.7 pg/mL (7.5-53.5)
== END 2022-05-19 10:44 | disposition home or self-care (01) ==
PROVIDERS: PCP Nurse Practitioner Family; Visit Provider Nurse Practitioner Family
DX: R10.829 Rebound abdominal tenderness, unspecified site (principal)
CPT/HCPCS: 36415; 74018; 83970; 85025

== ENCOUNTER 2022-10-22 00:19 | Day surgery (SDC) | payer OTHER, SELFPAY ==
[2022-10-08 16:15] VITALS: BMI 31.4
--- NOTE | 2022-10-08 16:34 | PC.NURSE ---
Report to the Outpatient Waiting Room, entrance under the green pavilion located off [facility], at time 1030 on date 10/22/22. Planned Procedure Time: 1230. Time changes happen often and if your time is changed the preop area will call you the afternoon before. - You and your visitor will be asked to self-screen and do not enter if you have any COVID symptoms. - Only one visitor is requested with a max of two and NO children visitors are allowed at this time. - The patient visitor may be requested to leave or wait in car when not with patient due to distancing restrictions. - A mask is optional within the hospital. Patients may have clear liquids (water, carbonated beverages, clear teas, apple juice) until 3 hours prior to surgery with a maximum of 20 ounces. - No food from midnight until time of surgery - Infants may have breast milk until 4 hours before surgery, infant formula 6 hours prior to surgery. - Children will be allowed to drink immediately following surgery. If applicable, please bring a bottle or sippy cup to assist with drinking. Juice, water, soda, and popsicles are readily available. For infants on formula, please bring formula the day of surgery. Pacifiers are allowed. Take the following medications with a SIP of water the morning of surgery: _n/a__ Medications to discontinue per physician _n/a Date to take last dose Please no make-up, nail georgian, hairspray, perfume, deodorant, or body powder the day of surgery. No jewelry (including any body piercings) or valuables the day of surgery, leave them at home. Please take a shower or bath the night before, or the morning of, surgery with an antibacterial soap. Wear comfortable, loose fitting clothing. Children are encouraged to wear pajamas. - Jewelry must be removed prior to entering the operating room. Rings and piercings that are not removed may be cut off. - The hospital will not accept responsibility for valuables. - Please leave all valuables, including medications, at home the day of surgery. If you are going home after surgery, a licensed septic pump truck driver must drive you home. - NO public transportation without another adult if you receive anesthesia. - We recommend that an adult stay with you for 24 hours following discharge. - We also recommend that you do not drive, make important decision, drink alcoholic beverages, or take any drugs that were not prescribed by your health care provider for at least 24 hours after your discharge time. For Pediatric surgeries, we recommend two adults accompany the child home. Follow any additional instructions given to you from your surgeon. If you or anyone in your household have experienced Covid symptoms in the past week, please notify your surgeon or the nurse liaison at the phone number below for possible testing. Telephone instructions given to Elle Macias and asked if any additional questions and then verbalized understanding. Patient advised to call surgeon office or pre surgery nurse liaison [phone] if any additional questions.
--- NOTE | 2022-10-21 15:26 | PM.IMHP ---
H&P: HPI History of Present Illness Date/Time: 10/21/22 15:26 Chief Complaint: Multiparity, desires permanent sterilization Narrative: Patient is a 27-year-old woman who presents for permanent sterilization. Patient does not desire future fertility stating that she is certain she does not want any more children in the future. She currently has a Nexplanon device in place and is requesting removal at same time as surgery. She declines all alternative methods of contraception. In general, patient reports feeling well today without complaints. Review of Systems Review of Systems: All systems reviewed & are unremarkable except as noted in HPI and below Constitutional: Constitutional: Reports as per HPI and Reports no additional constitutional complaints Eyes: Eyes: Reports as per HPI and Reports no additional eye complaints ENT: Reports system reviewed and no additional complaints, except as documented and Reports as per HPI Cardiovascular: Cardiovascular: Reports as per HPI and Reports no additional cardiovascular complaints Respiratory: Respiratory: Reports as per HPI and Reports no additional respiratory complaints Gastrointestinal: Gastrointestinal: Reports as per HPI and Reports no additional gastrointestinal complaints Genitourinary: Genitourinary: Reports no additional female genitourinary complaints and Reports as per HPI Musculoskeletal: Musculoskeletal: Reports no additional musculoskeletal complaints and Reports as per HPI Integumentary/Breasts: Skin/Breast: Reports system reviewed and no additional complaints, except as docu and Reports as per HPI Neurologic: Reports system reviewed and no additional complaints, except as documented and Reports as per HPI Psychiatric: Psychiatric: Reports no additional psychiatric complaints and Reports as per HPI Endocrine: Endocrine: Reports no additional endocrine complaints and Reports as per HPI Hematologic/Lymphatic: Hematologic/Lymphatic: Reports no additional hematologic/lymphatic complaints and Reports as per HPI Allergic/Immunologic: Allergic/Immunologic: Reports no additional allergic/immunologic complaints and Reports as per HPI PMFSH Past Medical History Medical History Cervical radiculopathy Chronic migraine Depression Elective x1 Generalized anxiety disorder High serum parathyroid hormone (PTH) Hypovitaminosis D Kidney stones Vaginal delivery x2 Surgical History Surgical History H/O parathyroidectomy January 2022 History of cholecystectomy 2012 History of placement of ear tubes 10 sets History of tympanoplasty 2013 Hx of tonsillectomy [place] teeth extracted 2014 Family History Family History Father Diabetes mellitus Hypertension Depression with anxiety Mother Family history of malignant melanoma Grandparent Asthma Renal cancer Diabetes mellitus Depression with anxiety Social History Social History Smoking status: Current every day smoker Tobacco type: e-cigarettes/vaping Alcohol intake: current Alcohol use details: rare use Substance use: never Gender identity (if verbalized by the patient): Female Spiritual care concerns: No Meds Home Medications and Allergies Home Medications Medication Instructions Recorded Confirmed Type etonogestrel 68 mg subdermal 1 implant subdermal ONCE 04/13/22 10/08/22 History implant (Nexplanon) hydroxyzine HCl 25 mg tablet 25 tablet PO TID PRN Anxiety 04/13/22 10/08/22 History norethindrone 1 mg-ethinyl 1 tablet PO DAILY #3 packets 08/24/22 10/08/22 Rx estradiol 10 mcg (24)-iron 10 mcg(2) tablet (Lo Loestrin Fe) zolpidem 10 mg tablet (Ambien) 10 mg PO HS PRN Insomnia 08/24/22 10/08/22 History Allergies Allergy/AdvReac Type Maureeni
[2022-10-22] VITALS (7 sets, daily range): BP systolic 115–130; BP diastolic 55–81; PULSE 59–79; RESP 13–20; TEMP 36.7–37.1; O2SAT 95–100
[2022-10-22] MEDS: KETOROLAC 15 MG/ML VIAL (*BKC) IV PUSH (11:18)
[2022-10-22] MEDS: LACTATED RINGERS 1,000 ML 30 ML IV CONT (11:18)
[2022-10-22] MEDS: ACETAMINOPHEN 500 MG TABLET 1000 MG PO (11:19)
--- NOTE | 2022-10-22 11:34 | WPDHPUPDATE1 ---
History and Physical Update Update Date/Time: 10/22/22 11:34 History and Physical has been reviewed, including an updated exam of the patient. There are NO changes in the patient's condition. Risks, benefits, and alternatives have been discussed and questions answered. Patient agrees to proceed with procedure.
--- NOTE | 2022-10-22 11:38 | WPDANESEPPF ---
Anes - Initial Pre Proc Eval Procedure: Operation Date: 10/22/22 12:30 Proposed Procedures p Laparoscopic Bilateral Salpingectomy, Nexplanon Removal Left Arm - Olga Bauer MD Date/Time: 10/22/22 11:38 Surgeon: Olga Bauer MD Pre Op Diagnosis: desires sterilization Patient Data Age: 27 Gender: F Height: 1.63 m Weight: 82.6 kg Last Vital Signs Temp 36.7 C 10/22/22 11:28 Pulse 79 10/22/22 11:28 Resp 18 10/22/22 11:28 BP 123/72 10/22/22 11:28 Pulse Ox 98 10/22/22 11:28 O2 Del Method Room Air 10/22/22 11:28 Allergies Allergy/AdvReac Type Severity Reaction Status Date / Time metoclopramide [From Reglan] AdvReac Jittery Verified 10/05/22 11:35 Home Medications Medication Instructions Recorded Confirmed Type etonogestrel 68 mg subdermal 1 implant subdermal ONCE 04/13/22 10/08/22 History implant (Nexplanon) hydroxyzine HCl 25 mg tablet 25 tablet PO TID PRN Anxiety 04/13/22 10/08/22 History norethindrone 1 mg-ethinyl 1 tablet PO DAILY #3 packets 08/24/22 10/08/22 Rx estradiol 10 mcg (24)-iron 10 mcg(2) tablet (Lo Loestrin Fe) zolpidem 10 mg tablet (Ambien) 10 mg PO HS PRN Insomnia 08/24/22 10/08/22 History Patient hx anesthesia problems: none Family hx anesthesia problems: none Results Review: All pre-operative results and documents have been reviewed as part of the pre-operative evaluation. [facility] Past Medical History Medical History Cervical radiculopathy Chronic migraine Depression Elective x1 Generalized anxiety disorder High serum parathyroid hormone (PTH) Hypovitaminosis D Kidney stones Vaginal delivery x2 Surgical History Surgical History H/O parathyroidectomy January 2022 History of cholecystectomy 2011 History of placement of ear tubes 10 sets History of tympanoplasty 2013 Hx of tonsillectomy [place] teeth extracted 2013 Family History Family History Father Diabetes mellitus Hypertension Depression with anxiety Mother Family history of malignant melanoma Grandparent Asthma Renal cancer Diabetes mellitus Depression with anxiety Social History Social History Smoking status: Current every day smoker Tobacco type: e-cigarettes/vaping Alcohol intake: current Alcohol use details: rare use Substance use: never Living arrangements: with family Gender identity (if verbalized by the patient): Female Spiritual care concerns: No Anes - Eval Final PreProcedure Day of Procedure 10/22/22 11:38 Patient weight: overweight Heart: regular rate and rhythm Lungs: clear to auscultation Airway: Mallampati scale class II Neurological: alert and oriented Last oral intake: >/= 8 hours ASA classification: II Emergent: no Anesthetic plan: proceed Anesthesia type and monitoring: general ETT and standard monitoring Results Review: All pre-operative results and documents have been reviewed as part of the pre-operative evaluation. Informed Consent: The patient's anesthetic plan and its attendant risks and benefits were discussed with the patient/family/POA. Questions were solicited and answers provided to the satisfaction of the patient/family/POA.
[2022-10-22] MEDS: ceFAZolin 2 GM/D5W 50 ML 2 GM/50 ML BAG IVPB (11:58)
[2022-10-22] MEDS: BUPIVACAINE/EPINEPHRINE 0.5% 10 ML VIAL 20 ML INFILTRATE (12:26)
[2022-10-22] MEDS: LIDOCAINE HCL 1% LOCAL INJ 20 ML VIAL 30 ML INFILTRATE (12:27)
--- NOTE | 2022-10-22 13:03 | W.PM.PROC2 ---
Procedure Note - Detailed Date of Procedure 10/22/22 Pre-op Diagnosis Multiparity, desires permanent sterilization Post-op Diagnosis Same Procedure Performed Laparoscopic bilateral salpingectomy, removal of Nexplanon device from left arm Surgeon Olga Bauer MD Platform Attendant Lisseth Cruz Anesthesia General Findings Normal appearing uterus, ovaries, and fallopian tubes bilaterally Description of Procedure The patient was taken to the operating room, where she self transferred to the operating room table.? She was placed in dorsal supine position.? General anesthesia was administered and found to be adequate.? The patient was then repositioned in dorsal lithotomy position with the use of Dalton stirrups.? She was prepped and draped in the usual sterile fashion.? A red rubber catheter was used to drain the bladder of 50 cc of clear urine.? A sponge stick was inserted in the vagina for elevation of the uterus during the laparoscopic portion of the case.? Naturopathic Doctor's gloves were changed.? Attention was then turned to the patient's abdomen.? A small amount of 0.5% Marcaine was injected in infraumbilical region.? An infraumbilical skin incision was made with a scalpel. With the abdomen tented up, a Veress needle was introduced into the abdominal cavity.? Intra-abdominal placement was confirmed with saline.? The Veress needle was connected to CO2 tubing and insufflation was begun.? When adequate pneumoperitoneum was achieved, the Veress needle was removed and a 5 mm Optiview trocar was introduced under direct visualization with the laparoscope.? The patient was placed in Trendelenburg position and a brief pelvic survey was performed with good visualization.? Decision was made to place two accessory trocars for completion of the procedure, one in the left lower quadrant and the other in the right lower quadrant. A small amount of Marcaine was administered in the left lower quadrant and a skin incision was made. A 5 mm trocar was introduced under direct visualization. Similarly, a small amount of Marcaine was administered in the right lower quadrant and a skin incision was made. Another 5 mm trocar was introduced under direct visualization. With the use of blunt graspers, a general pelvic survey was performed. The uterus, ovaries and fallopian tubes appeared to be normal bilaterally. A photograph was taken. The right fallopian tube was identified and followed through to the fimbriated end. Starting at the fimbriated end, sequential bites in the mesosalpinx beneath the fallopian tube were taken using a 5 mm LigaSure device towards the uterine cornua. When the level of the uterine cornua was reached, the fallopian tube was transected and completely detached.? The fallopian tube was then removed and handed off to be sent to pathology. Attention was then turned to the patient's left fallopian tube, which in a similar manner, was grasped and followed through to the fimbriated end. With the use of the LigaSure device, sequential bites in the mesosalpinx beneath the fallopian tube were taken until the level of the uterine cornua was reached. The fallopian tube was then transected, completely detached, and removed. No bleeding was noted. Another photograph was taken. The abdomen was desufflated and all trocars were removed under direct visualization. The patient's abdomen was cleansed and dried. The incision sites were closed with 4-0 Monocryl in a subcuticular fashion and a skin adhesive was applied on top of the incisions.? The sponge stick was removed from the vagina.? No bleeding was noted.? The patient was cleansed and dried and taken out of the dorsal lithotomy position.? Attention was then turned to the patient's left arm. Nexplanon device was palpated. Betadine was used to cleanse the skin. Small incision was made with the scalpel and the Nexplanon device was easily removed through the incision with a Debra forceps. Device was inspected and noted to be intact. Device was discarded.
== END 2022-10-22 14:44 | disposition home or self-care (01) ==
PROVIDERS: PCP Nurse Practitioner Family; Visit Provider Student in an Organized Health Care Education/Training Program
PROC: (CPT 49320; principal; 2022-10-22 12:30)
DX: Z30.2 Encounter for sterilization (principal); Z30.46 Encounter for surveillance of implantable subdermal contraceptive; F17.290 Nicotine dependence, other tobacco product, uncomplicated
CPT/HCPCS: 58661; 11982; 88302; A9270; C9290; J0690; J1100; J1170; J1885; J2250; J2405; J2704; J2710; J3010; J7030; J7120

== ENCOUNTER 2022-12-08 13:59 | Emergency (ER) | payer OTHER, MEDICAID, SELFPAY ==
[2022-12-08 14:13] VITALS: BP 140/78; PULSE 80; RESP 20; TEMP 36.3; O2SAT 100
--- NOTE | 2022-12-08 14:36 | ED.URI ---
HPI - URI/Sore Throat General Chief Complaint: Upper Respiratory Infection Stated Complaint: Sore Throat,Headache,Body Aches,Congestion Time Seen by Provider: 12/08/22 14:29 Source: patient Mode of arrival: ambulatory Limitations: no limitations History of Present Illness HPI Narrative: Patient presents today complaining of sore throat, body aches, congestion, sweats, headache since yesterday. Denies fever or shortness of breath or difficulty swallowing. She currently rates her discomfort 6/10 and has been taking Mucinex, Sudafed, Tylenol, and ibuprofen with some short-term relief. No recent antibiotic use. Related Data Home Medications Medication Instructions Recorded Confirmed hydroxyzine HCl 25 mg tablet 25 tablet PO TID PRN Anxiety 04/13/22 12/08/22 zolpidem 10 mg tablet (Ambien) 10 mg PO HS PRN Insomnia 08/24/22 12/08/22 Allergies Allergy/AdvReac Type Severity Reaction Status Date / Time metoclopramide [From Reglan] AdvReac Jittery Verified 12/08/22 14:11 Review of Systems Review of Systems: CONSTITUTIONAL: Denies fever, chills. + body aches, sweats EYES: Denies visual changes, redness, or discharge. ENT: Denies rhinorrhea, or otalgia.+ congestion, sore throat CARDIOVASCULAR: Denies chest pain, palpitations, or edema. RESPIRATORY: Denies cough or dyspnea. GASTROINTESTINAL: Denies abdominal pain, nausea, vomiting, or diarrhea. GENITOURINARY: Denies dysuria or hematuria. SKIN: Denies rash, itching, or wounds. MUSCULOSKELETAL: Denies back pain, joint pain, or myalgia. NEUROLOGIC: Denies numbness, tingling, or weakness.+ headache PSYCH: Denies depression or anxiety. [facility] Past Medical History Medical History Cervical radiculopathy Chronic migraine Depression Elective x1 Generalized anxiety disorder High serum parathyroid hormone (PTH) Hypovitaminosis D Kidney stones Vaginal delivery x2 Surgical History Surgical History H/O parathyroidectomy January 2022 History of cholecystectomy 2011 History of placement of ear tubes 10 sets History of tympanoplasty 2014 Hx of tonsillectomy [place] teeth extracted 2014 Family History Family History Father Diabetes mellitus Hypertension Depression with anxiety Mother Family history of malignant melanoma Grandparent Asthma Renal cancer Diabetes mellitus Depression with anxiety Social History Social History Smoking status: Current every day smoker Tobacco type: e-cigarettes/vaping Alcohol intake: current Alcohol use details: rare use Substance use: never Living arrangements: with family Gender identity (if verbalized by the patient): Female Spiritual care concerns: No Comments At time of signature, I have reviewed and agree with nursing past medical, surgical, social and family history unless otherwise noted. Please see nursing chart for further information. There is no relevant family history pertinent to the presenting complaint Exam Narrative: GENERAL: Mildly ill-appearing, well-nourished, and in no acute distress. HEAD: Normocephalic, atraumatic. EYES: EOMI. No redness or drainage. Conjunctivae normal. ENT: Mucous membranes pink and moist. Nares congested. No rhinorrhea. TMs normal bilaterally. Throat mildly erythematous and edematous without exudate. Uvula midline. NECK: Normal AROM. Supple. No lymphadenopathy. CHEST: No respiratory distress. Clear to auscultation. HEART: Regular rate and rhythm. No murmur appreciated. EXTREMITIES: Normal range of motion. No edema. SKIN: Warm, dry, no rash. Capillary refill normal. Normal skin turgor. NEURO: No focal deficits. Alert and oriented x3. Gait steady. PSYCH: Normal affect. No signs of depression or anxiety.
== END 2022-12-08 14:40 | disposition home or self-care (01) ==
PROVIDERS: Emergency Provider Nurse Practitioner; PCP Nurse Practitioner Family
DX: J02.0 Streptococcal pharyngitis (principal); F17.290 Nicotine dependence, other tobacco product, uncomplicated; F41.1 Generalized anxiety disorder; Z90.89 Acquired absence of other organs
CPT/HCPCS: 87804; 87880; 99213; G0463

== ENCOUNTER 2024-10-24 08:59 | Emergency (ER) | payer OTHER, SELFPAY ==
--- NOTE | 2024-10-24 09:06 | ED_ITS ---
HPI - URI/Sore Throat General Chief Complaint: Upper Respiratory Infection Stated Complaint: sore throat and body aches Time Seen by Provider: 10/24/24 09:30 Source: patient, RN notes reviewed and old records reviewed Mode of arrival: ambulatory Limitations: no limitations History of Present Illness HPI Narrative: patient presents with complaints of URI symptoms began yesterday. She denies any fevers. She has been taking DayQuil and drinking hot tea with honey for her symptoms. She reports moderate relief. She is in no distress. She voices no other concerns or complaints at this time. Related Data Allergies Allergy/AdvReac Type Severity Reaction Status Date / Time metoclopramide (From Reglan) AdvReac Intermediate Jittery Verified 10/24/24 09:03 Review of Systems Review of Systems: All systems reviewed & are unremarkable except as noted in HPI and below Constitutional: Constitutional: Reports as per HPI, Reports no additional constitutional complaints, Reports body ache(s), Reports headache(s) and Reports lethargy ENT: Reports system reviewed and no additional complaints, except as documented, Reports nasal congestion, Reports post nasal drip and Reports sore throat Cardiovascular: Cardiovascular: Reports no additional cardiovascular complaints Respiratory: Respiratory: Reports no additional respiratory complaints and Reports cough Gastrointestinal: Gastrointestinal: Reports no additional gastrointestinal complaints PMFSH Past Medical History Medical History Kidney stones Right ovarian cyst High serum parathyroid hormone (PTH) Vaginal delivery x2 Elective x1 Depression Hypovitaminosis D Cervical radiculopathy Generalized anxiety disorder Chronic migraine Surgical History Surgical History H/O parathyroidectomy January 2022 History of placement of ear tubes 10 sets [place] teeth extracted 2013 History of tympanoplasty 2013 History of cholecystectomy 2011 Hx of tonsillectomy Family History Family History Father Diabetes mellitus Hypertension Depression with anxiety Mother Family history of malignant melanoma Grandparent Asthma Renal cancer Diabetes mellitus Depression with anxiety Social History Social History Smoking status: Former smoker Tobacco type: e-cigarettes/vaping Alcohol intake: current Alcohol use details: rare use Substance use: never Substance use type: does not use Lack of Transportation: No Lack of Food: Never True Current Housing: I Have Housing Concerned About Future Housing: No Difficulty Paying Gas/Electric Bills: No Difficulty Paying for Meds: No Currently Unemployed: No Living arrangements: with family Gender identity (if verbalized by the patient): Female Spiritual care concerns: No Comments At the time of my signature, I reviewed and agree with the nursing past medical, surgical, social, and family history. There is no relevant family history pertinent to the patient complaint. Exam Const: General: cooperative, no acute distress, alert and awake Orientation/consciousness: oriented to person, oriented to place and oriented to time HENMT: Head: normal to inspection Resp: Effort & Inspection: normal respiratory effort and able to speak in complete sentences Auscultation: clear to auscultation bilaterally, no crackles, no rales, no rhonchi and no wheezes Cardio: Palpation: normal PMI Rate: regular rate Rhythm: regular rhythm Heart sounds: S1 normal heart sound present and S2 normal heart sound present Neuro: General: oriented to person, oriented to place and oriented to time Cranial nerves: Yes CN's II-XII intact bilaterally Psych: Appearance: grossly normal Thought process: Normal thought process present Insight: Good insight present (Psych) Judgement: Good judgement present (Psych) Course Course Level of Care: Express Care Visit Vital Signs Vital signs: Reviewed MDM - URI/Sore Throat MDM Narrative Medical decision making narrative: Negative flu, negative strep, negative COVID. Culture pending. Reassuring physical exam. Symptoms likely viral in origin. Treat symptomatically. Discharge instructions reviewed with patient, as well as provided in writing per nursing staff. The instructions also include specific and strict return/GO TO THE ER as well as f/u information. All questions have been answered, and the patient deny any further questions with discharge and discharge plan. Some parts of this dictation were generated by voice recognition software and may contain typographical and/or grammatical inaccuracies. Differential Diagnosis Differential diagnosis: Likely upper respiratory infection, otitis media, sinusitis, viral infection, influenza and pharyngitis Medical Records Attestation: I reviewed the patient's medical records. Lab Data Attestation: I reviewed the patient's lab results. Discharge Plan Discharge Clinical Impression: URI (upper respiratory infection) Qualifiers: URI type: unspecified viral URI Qualified Code(s): J06.9 - Acute upper respiratory infection, unspecified Patient Disposition: Home, Self-Care Condition: Stable Instructions: Antibiotic Form, Cold Symptoms (ED) Additional Instructions: use [id number] medications per package instructions to relief your symptoms. Follow with your primary care provider. Emergency department for new or worsened symptoms Patient Language: [place] Follow-up/Referrals: Arianne Lombardi APRN [Primary Care Provider] - 2 Weeks Stand Alone Forms: Work/School Release IP Time of Disposition: 09:40
[2024-10-24 09:13] VITALS: BP 114/85; PULSE 91; RESP 16; TEMP 36.3; O2SAT 100
[2024-10-24 09:33] LABS: EDCOVIDSCREEN Negative (Negative)
[2024-10-24 09:34] LABS: EDINFLUASCREEN Negative (Negative); EDINFLUBSCREEN Negative (Negative); EDSTREPNEGPOS1 Negative (Negative)
== END 2024-10-24 09:41 | disposition home or self-care (01) ==
PROVIDERS: Emergency Provider Nurse Practitioner Family; PCP Nurse Practitioner Family
DX: J06.9 Acute upper respiratory infection, unspecified (principal); Z20.822 Contact with and (suspected) exposure to COVID-19; Z90.89 Acquired absence of other organs
CPT/HCPCS: 87081; 87426; 87804; 87880; 99213; G0463